=== PATIENT | female | born 1995 | race African-American/Black ===

== ENCOUNTER 2019-04-08 16:24 | Emergency (ER) | payer OTHER ==
[~2019-04-08] VITALS: Ht 157.5 cm; Wt 51.3 kg
[2019-04-08 16:54] VITALS: Ht 157.5 cm; Wt 51.3 kg
[2019-04-08 18:53] VITALS: BP 140/81
== END 2019-04-08 18:53 | disposition home or self-care (01) ==
LOC: ED 16:24
DX: K29.70 Gastritis, unspecified, without bleeding (principal)
CPT/HCPCS: Q0162

== ENCOUNTER 2020-03-02 10:57 | Emergency (ER) | payer OTHER ==
[~2020-03-02] VITALS: Ht 162.6 cm; Wt 48.1 kg
[2020-03-02 11:16] VITALS: Ht 162.6 cm; Wt 48.1 kg
[2020-03-02 13:32] VITALS: BP 122/81
== END 2020-03-02 13:32 | disposition home or self-care (01) ==
LOC: ED 10:57
DX: M54.5 Low back pain (principal)
CPT/HCPCS: 72072; Q0092